=== PATIENT | female | born 1985 | race Two or more races ===

== ENCOUNTER 2021-05-28 17:16 | Emergency (ER) | payer OTHER ==
[~2021-05-28] VITALS: Ht 165.1 cm; Wt 99.3 kg
[2021-05-28] MEDS ORDERED: PLAQUENIL PO (17:31)
== END 2021-05-28 20:53 | disposition home or self-care (01) ==
LOC: ER 17:16
DX: U07.1 COVID-19 (principal); K80.20 Calculus of gallbladder without cholecystitis without obstruction

== ENCOUNTER 2021-05-31 08:30 | Outpatient (CLI) | payer OTHER ==
[~2021-05-31 08:30] MED LIST: PLAQUENIL PO
== END 2021-05-31 10:00 | disposition home or self-care (01) ==
LOC: ASH CLINIC 08:30
PROVIDERS: ATTEND Emergency Medicine
DX: Z23 Encounter for immunization (principal); U07.1 COVID-19